=== PATIENT | female | born 1985 | race Hispanic/Latino ===

== ENCOUNTER 2017-02-04 20:34 | Inpatient (IN) | payer OTHER ==
[2017-02-04] MEDS ORDERED: LACTATED RINGERS 1,000 ML ONE (20:49)
[2017-02-04] MEDS ORDERED: LACTATED RINGERS 1,000 ML IV ONE (21:00)
--- NOTE | 2017-02-04 22:46 | History and Physical Report ---
History of Present Illness Date of examination: 02/04/17 Date of admission: 02/04/17 20:34 Chief complaint: Delivered in van by EMS History of present illness: This is a 31 yo female that I was called to deliver placenta. She had came via ems and delivered and it was stated that placenta still in uterus. [place] [facility] [place] stated that she was stripped at 12 p and began malorie at 4p and delivered in van by 7pm. Her records were reviewed and examined. OB care initiated in June at 12 weeks ( total visits 8) LMP 04/17/16 EDC 01/22/17 labs O+ antibody neg H/H 13.3/41.1 PLT 275 RPR NR Urine culture negHep neg HIV NR chlam neg betsy eng Rubella IMM US 06/19/16 8w5d 09/11/16 20w6d H/H 12.6/39.3 PLT 230 DM 90 H/H 11.8/38 PLT 254 GBS + Past History Past Medical History: asthma, hypertension (benign essential hypertension) Past Surgical History: no surgical history Family/Genetic History: none Social history: no significant social history, . denies: smoking, alcohol abuse, prescription drug abuse - Obstetrical History Expected Date of Delivery: 01/22/17 Actual Gestation: 41 Week(s) 6 Day(s) : 3 Para: 2 Hx # Term Pregnancies: 2 Number of Pregnancies: 0 Spontaneous Abortions: 0 Induced : 0 Number of Living Children: 2 Medications and Allergies Allergies Allergy/AdvReac Type Severity Reaction Status Date / Time amoxicillin AdvReac Mild Hives Verified 02/04/17 22:01 Review of Systems All systems: negative - Vital Signs Vital signs: Vital Signs Pulse BP 95 H 161/110 02/04/17 21:00 02/04/17 21:00 Temp Pulse Resp BP Pulse Ox 97.6 F 91 H 12 149/75 97 02/04/17 21:26 02/04/17 22:31 02/04/17 21:26 02/04/17 22:31 02/04/17 22:31 - Physical Exam Breasts: Positive: deferred Cardiovascular: Regular rate, Normal S1 Lungs: Positive: Clear to auscultation, Normal air movement Abdomen: Positive: normal appearance, soft, normal bowel sounds. Negative: distention, tenderness, guarding Genitourinary (Female): Positive: normal external genitalia, normal perenium Vulva: both: normal Vagina: Positive: normal moisture Uterus: Positive: normal size, normal contour Anus/Rectum: Positive: normal perianal skin Extremities: Positive: normal Deep Tendon Reflex Grade: Normal +2 Results All other labs normal. Assessment and Plan A/P s/p Home delivery , Dx benign essential HTN Placenta in uterus prepare for removal closely monitor BP if elevated consider mag order PIH w/u
[2017-02-04] MEDS ORDERED: PITOCin/NS 20 UNIT/1000ML DRIP 20,000 MILLIUNITS/1,000 ML BAG IV ONE (22:56)
--- NOTE | 2017-02-04 22:56 | Procedure Note ---
OB Delivery Note - Delivery Date of Delivery: 02/04/17 Surgeon: NITISH PECK - Vaginal Delivery position: OA Intrapartum events: other(please specify) (Delivered at home) Delivery induction: none Delivery monitor: none Route of delivery: Delivery placenta: spontaneous Delivery cord: 3 umbilical vessels Episiotomy: none Delivery laceration: none Anesthesia: none Delivery comments: Patient delivered in [place] prior to hospitailzation - A Infant Gender: Male
--- NOTE | 2017-02-04 23:00 | Event Note ---
Date: 02/04/17 Patient was noted in bed lying comfortably in bed with several family members lauching in no acute distress. VSS bleeding noted min with cord hanging out of vagina with clamp at end. evaluated perineum no lac placenta noted at the introitus gentle pull and pushing delivered spontaneous placenta intact with 3 vessle cord. Minimal bleeding less than 100cc small vaginal lac not bleeding no stitches required hemostatic patient tolerated procedure well
[2017-02-04] MEDS ORDERED: PHENERGAN PR PRN (23:01)
[2017-02-04] MEDS ORDERED: TYLENOL PO PRN (23:01)
[2017-02-04] MEDS ORDERED: MILK OF MAGNESIA PO PRN (23:01)
[2017-02-04] MEDS ORDERED: TORADOL IV PRN (23:01)
[2017-02-04] MEDS ORDERED: PERCOCET 5/325 PO PRN (23:01)
[2017-02-04] MEDS ORDERED: TUCKS PAD TP PRN (23:01)
[2017-02-04] MEDS ORDERED: BENADRYL PO PRN (23:01)
[2017-02-04] MEDS ORDERED: ZOFRAN IV PRN (23:01)
[2017-02-04] MEDS ORDERED: NORCO 5/325 PO PRN (23:01)
[2017-02-04] MEDS ORDERED: LANSINOH TP PRN (23:01)
[2017-02-04] MEDS ORDERED: DULCOLAX PR PRN (23:01)
[2017-02-04] MEDS ORDERED: PHENERGAN PO PRN (23:01)
[2017-02-04] MEDS ORDERED: SODIUM CHLORIDE FLUSH SYRINGE 10 ML IV NR (23:45)
[2017-02-04] MEDS ORDERED: PITOCin/NS 20 UNIT/1000ML DRIP 20 UNITS/1,000 ML BAG IV SCH (23:45)
[2017-02-05 00:28] LABS: Hemoglobin 11.4 gm/dl (10.1-14.3)
[2017-02-05 00:40] LABS: Hematocrit 36.1 % (30.3-42.9); Hemoglobin 11.6 gm/dl (10.1-14.3); Mean Corpuscular HGB Conc 32 % (30-34); Mean Corpuscular Hemoglobin 26 pg (28-32); Mean Corpuscular Volume 82 fl (79-97); Platelet Count 255 K/mm3 (140-440); Red Blood Count 4.39 M/mm3 (3.65-5.03); Red Cell Distribution Width 14.8 % (13.2-15.2)
[2017-02-05 00:44] LABS: White Blood Count 25.3 K/mm3 (4.5-11.0)
[2017-02-05 01:03] LABS: Alanine Aminotransferase 12 units/L (7-56)
[2017-02-05 01:58] LABS: Lactate Dehydrogenase 211 units/L (91-180); Uric Acid 5.1 mg/dL (3.5-7.6)
[2017-02-05] MEDS: MOTRIN PO SCH ×4 (05:49→20:07)
[2017-02-05] MEDS ORDERED: M-M-R II VACCINE SUB-Q ONE (06:00)
[2017-02-05] MEDS: COLACE PO SCH ×2 (12:19→21:35)
[2017-02-05] MEDS: PRENATAL VITAMIN PO SCH (12:19)
[2017-02-05] MEDS ORDERED: MAGNESIUM SULFATE 4GM/100ML 4 GM/100 ML BAG IV ONE (15:51)
[2017-02-05] MEDS ORDERED: MAGNESIUM SULFATE 40GM/1000ML 40 GM/1,000 ML BAG IV SCH (16:00)
--- NOTE | 2017-02-05 20:21 | Progress Note ---
Assessment and Plan A/P PPD#1 s/p Home delivery , Dx benign essential HTN , PIH PIH labs sent and reviewed BP elevated discussed with PCP OB and agreed to Mag for PIH Patient declined MAg aware risk of ecclamptic seizure will continue to watch BP if continued elevation of BP will give labetolol patient non compliant in following recommnedations and understands risk of seizure and other untoward effects of PIH if paatient BP normalize will d/c home tomoerrow with f/u with PCP job hand on Thursday Subjective - Subjective Date of service: 02/05/17 Principal diagnosis: Interval history: This is a 31 yo female that I was called to deliver placenta. She had came via ems and delivered and it was stated that placenta still in uterus. She had [place] [facility] [place] and stated that she was stripped at 12 p and began malorie at 4p and delivered in [place] by 7pm. Her records were reviewed and examined. OB care initiated in June at 12 weeks ( total visits 8) LMP 04/17/16 EDC 01/22/17 labs O+ antibody neg H/H 13.3/41.1 PLT 275 RPR NR Urine culture negHep neg HIV NR chlam neg betsy eng Rubella IMM US 06/19/16 8w5d 09/11/16 20w6d H/H 12.6/39.3 PLT 230 DM 90 H/H 11.8/38 PLT 254 GBS + Patient reports: appetite normal, voiding normally, pain well controlled, ambulating normally : doing well, nursing well Objective - Vital Signs Latest vital signs: Vital Signs Temp Pulse Resp BP BP Pulse Ox 02/05/17 20:07 18 02/05/17 17:12 99.3 F 88 20 171/86 02/05/17 11:30 97.8 F 85 20 145/80 02/05/17 08:25 97.8 F 81 20 154/89 02/05/17 05:55 98.5 F 94 H 18 152/87 02/05/17 03:00 98.7 F 95 H 18 148/88 02/05/17 02:35 98.7 F 88 16 161/86 02/05/17 01:45 91 H 148/72 02/05/17 01:39 97.7 F 90 12 147/67 02/05/17 01:31 90 147/67 02/05/17 01:15 91 H 156/68 02/05/17 01:00 90 151/72 02/05/17 00:45 90 150/71 02/05/17 00:30 98 H 146/62 02/05/17 00:16 88 162/74 02/05/17 00:07 97.2 F L 98 H 12 164/70 02/05/17 00:01 98 H 164/70 02/04/17 23:45 93 H 146/81 02/04/17 23:30 92 H 149/88 02/04/17 23:17 92 H 96 02/04/17 23:15 94 H 157/93 02/04/17 23:12 89 97 02/04/17 23:07 96 H 97 02/04/17 23:02 96 H 97 02/04/17 23:01 99 H 154/90 02/04/17 22:57 98 H 97 02/04/17 22:52 98 H 96 02/04/17 22:51 96 H 143/96 02/04/17 22:41 103 H 98 02/04/17 22:36 100 H 97 02/04/17 22:31 91 H 149/75 97 02/04/17 22:26 97 H 98 02/04/17 22:21 110 H 97 02/04/17 22:16 101 H 152/80 96 02/04/17 22:11 111 H 97 02/04/17 22:06 101 H 97 02/04/17 22:01 101 H 151/79 99 02/04/17 21:46 100 H 152/79 02/04/17 21:31 104 H 161/100 02/04/17 21:28 102 H 93 02/04/17 21:26 97.6 F 103 H 12 160/96 83 L 02/04/17 21:21 101 H 92 02/04/17 21:20 90 02/04/17 21:16 92 H 160/96 02/04/17 21:07 95 H 94 02/04/17 21:06 97 H 93 02/04/17 21:02 96 H 164/103 02/04/17 21:01 94 H 152/93 99 02/04/17 21:00 95 H 161/110 Intake and Output 06/22/17 06/22/17 06/22/17 06:59 14:59 22:59 Intake Total 13676 720 120 Output Total 750 Balance 9750 720 [place]: [place] [address] Lactated Ringers 1,000 ml 500 As .ROUTE .[facility] Rx#:[id number] PITOCin/NS 20 UNIT/1000ML 76079 DRIP 20 units In 1,000 ml @ 250 mls/hr IV DIRECT [place] Rx#:[id number] Oral 720 120 Output: Urine 750 Void 750 Other: Total, Intake Amount 360 120 Total, Output Amount 250 # Voids Void 1 1 - Exam Breasts: Present: deferred Cardiovascular: Present: Regular rate, Normal S1 Lungs: Present: Clear to auscultation, Normal air movement Abdomen: Present: normal appearance, soft, normal bowel sounds. Absent: distention, tenderness Uterus: Present: normal, firm. Absent: bogginess, tenderness Extremities: Present: normal Deep Tendon Reflex Grade: Normal +2 - Labs Labs: Abnormal lab results 02/04/17 02/05/17 Range/Units 23:20 00:00 WBC 25.3 H (4.5-11.0) K/mm3 MCH 26 L (28-32) pg Creatinine 0.4 L (0.7-1.2) mg/dL Lactate Dehydrogenase 211 H (91-180) units/L
[2017-02-05] MEDS: NORMODYNE PO SCH (21:35)
[2017-02-06] MEDS: MOTRIN PO SCH ×2 (05:42→13:07)
[2017-02-06] MEDS ORDERED: BOOSTRIX IM ONE (06:00)
--- NOTE | 2017-02-06 08:21 | Progress Note ---
Assessment and Plan A/P PPD#2 s/p Home delivery , Dx benign essential HTN , PIH PIH labs sent and reviewed BP stabilizied VSS Patient declined MAg aware risk of ecclamptic seizure consider d/c home after 48 hrs ( GBS +) patient non compliant in following recommnedations and understands risk of seizure and other untoward effects of PIH Subjective - Subjective Date of service: 02/06/17 Principal diagnosis: Interval history: This is a 31 yo female that I was called to deliver placenta. She had came via ems and delivered and it was stated that placenta still in uterus. [place] [facility] [place] stated that she was stripped at 12 p and began malorie at 4p and delivered in [place] by 7pm. Her records were reviewed and examined. OB care initiated in June at 12 weeks ( total visits 8) LMP 04/17/16 EDC 01/22/17 labs O+ antibody neg H/H 13.3/41.1 PLT 275 RPR NR Urine culture negHep neg HIV NR chlam neg betsy eng Rubella IMM US 06/19/16 8w5d 09/11/16 20w6d H/H 12.6/39.3 PLT 230 DM 90 H/H 11.8/38 PLT 254 GBS + Patient reports: appetite normal, voiding normally, pain well controlled, flatus , ambulating normally [place]: doing well, nursing well Objective - Vital Signs Latest vital signs: Vital Signs Temp Pulse Resp BP BP 02/06/17 05:42 18 02/06/17 04:09 97.8 F 80 24 127/69 02/05/17 21:35 82 147/87 02/05/17 20:07 18 02/05/17 17:12 99.3 F 88 20 171/86 02/05/17 11:30 97.8 F 85 20 145/80 02/05/17 08:25 97.8 F 81 20 154/89 Intake and Output 02/05/17 02/06/17 02/06/17 22:59 06:59 14:59 Intake Total 120 Balance 120 Intake: Oral 120 Other: Total, Intake Amount 120 # Voids Void 1 - Exam Breasts: Present: normal Cardiovascular: Present: Regular rate, Normal S1 Lungs: Present: Clear to auscultation, Normal air movement Abdomen: Present: normal appearance, soft, normal bowel sounds. Absent: distention, tenderness Vulva: both: normal Uterus: Present: normal, firm, fundal height below umbilicus (2cm). Absent: bogginess, tenderness Extremities: Present: normal Deep Tendon Reflex Grade: Normal +2
--- NOTE | 2017-02-06 08:25 | Discharge Summary ---
Providers - Providers Date of Admission: 02/04/17 20:34 Date of discharge: 02/06/17 Attending physician: NITISH PECK MD Primary care physician: NITISH PECK MD Hospitalization Reason for admission: other (Delivered in EMS placenta delviered at hospital ) Delivery: Episiotomy: none Laceration: none Other procedures: none complications: other (elevated BP, PIH) Discharge diagnosis: IUP at term delivered baby: male Hospital course: Patient delivered by EMS in van prior to hospitalization. She had some elevated BP and PIH no sx. Recommended mag she declined. Antihypertensive meds labetolol 100 mg po bid given. BP normalized. hx of GBS -patient stayed for 48 hrs. Condition at discharge: Good Disposition: DC-01 TO HOME OR SELFCARE Plan - Provider Discharge Summary Activity: routine Diet: routine Instructions: routine Additional instructions: [] Smoking cessation referral if applicable(refer to patient education folder for contact #) [] Refer to [facility]'s [facility] Booklet Call your doctor immediately for: * Fever > 100.5 * Heavy vaginal bleeding ( >1 pad per hour) * Severe persistent headache * Shortness of breath * Reddened, hot, painful area to leg or breast * Drainage or odor from incision. * Keep incision clean and dry at all times and follow doctor's instructions regarding bathing/showering - Follow up plan Follow up: NITISH PECK MD [Primary Care Provider] - 3 Days
[2017-02-06] MEDS: NORMODYNE PO SCH (10:04)
[2017-02-06] MEDS: PRENATAL VITAMIN PO SCH (10:06)
[2017-02-06] MEDS: COLACE PO SCH (10:15)
[2017-02-06 19:12] VITALS: BP 148/78
== END 2017-02-06 18:10 | disposition home or self-care (01) | DRG 774 ==
LOC: LD 20:34 → OB 02-05 01:52
PROVIDERS: ADMIT Obstetrics & Gynecology; ATTEND Obstetrics & Gynecology
PROC: 10E0XZZ Delivery of Products of Conception, External Approach (ICD-10-PCS; principal; 2017-02-04)
DX: Z39.0 Encounter for care and examination of mother immediately after delivery (principal); O16.5 Unspecified maternal hypertension, complicating the puerperium; Z37.0 Single live birth; O99.53 Diseases of the respiratory system complicating the puerperium; O99.825 Streptococcus B carrier state complicating the puerperium; J45.909 Unspecified asthma, uncomplicated; Z3A.41 41 weeks gestation of pregnancy; Z88.1 Allergy status to other antibiotic agents
CPT/HCPCS: 36415; 82565; 83615; 84450; 84460; 84550; 85014; 85018; 85027; 88307; 99211; A6250; G0463; J2590; J7120